=== PATIENT | female | born 1970 | race Two or more races ===

== ENCOUNTER 2017-03-29 21:53 | Emergency (ER) | payer BC ==
[~2017-03-29] VITALS: Ht 157.5 cm; Wt 81.8 kg
[2017-03-29 22:53] VITALS: Ht 157.5 cm; Wt 81.8 kg
[2017-03-30] MEDS ORDERED: KETOROLAC 30 MG INJ IM STA (00:18)
[2017-03-30] MEDS ORDERED: CYCLOBENZAPRINE 10 MG TAB PO ONE (00:30)
[2017-03-30] MEDS ORDERED: ONDANSETRON (ODT) 4 MG TAB ODT STA (02:18)
[2017-03-30] MEDS ORDERED: HYDROCODONE/APAP (5/325) TAB PO ONE (02:30)
[2017-03-30] MEDS ORDERED: HYDR-906 PO (03:03)
[2017-03-30] MEDS ORDERED: IBUP-1542 PO (03:03)
[2017-03-30 03:05] VITALS: BP 127/69; PULSE 82; RESP 18; TEMP 98.3
[2017-03-30] MEDS ORDERED: ONDA4TAB8 PO (03:14)
--- NOTE | 2017-03-31 14:20 | ERD ---
ER Documentation Chief Complaint Date/Time DATE: 03/31/17 TIME: 14:18 Chief Complaint R hip pain kulwant down 2 her R back & R thigh,no fall/trauma,Motrin no relief HPI This is a 46 year old female presents to ER with right-sided lower back pain that radiates down to right thigh. Patient rates pain 10/10 to right lower back and describes pain as shooting. No aggravating or relieving factors. Patient denies any recent fall or trauma to area. Denies dysuria or hematuria. Patient states she has intermittent numbness and tingling to lateral aspect of right thigh. Denies saddle anesthesia. No bowel or bladder incontinence. Patient took ibuprofen at home without relief of symptoms. ROS All systems reviewed and are negative except as per history of present illness. Medications Home Meds Active Scripts Ondansetron Hcl* (Zofran*) 4 Mg Tablet, 4 MG PO Q6H for NAUSEA AND/OR VOMITING, #10 TAB Prov:GHADA BURNETT NP 03/30/17 Ibuprofen* (Motrin*) 600 Mg Tab, 600 MG PO Q6, #15 TAB Prov:GHADA BURNETT NP 03/30/17 Hydrocodone/Acetaminophen (Watson 5-325 Tablet) 1 Each Tablet, 1 EACH PO Q6, #15 TAB Prov:GHADA BURNETT NP 03/30/17 Allergies Allergies: Coded Allergies: No Known Allergy (Unverified , 03/29/17) PMhx/Soc History of Surgery: Yes (gallbladder, L ovary removal) Hx Miscellaneous Medical Probl: Yes (high cholesterol) Hx Alcohol Use: No Hx Substance Use: No Hx Tobacco Use: No Smoking Status: Never smoker Physical Exam Vitals Vital Signs Date Time Temp Pulse Resp B/P Pulse Ox O2 Delivery O2 Flow Rate FiO2 03/30/17 03:05 98.3 82 18 127/69 99 03/29/17 22:53 98.6 65 18 137/79 99 Physical Exam Const: Alert, mild distress Head: Atraumatic Eyes: Normal Conjunctiva ENT: Normal External Ears, Nose and Mouth. Neck: Full range of motion..~ No meningismus. Resp: Clear to auscultation bilaterally Cardio: Regular rate and rhythm, no murmurs Abd: Soft, non tender, non distended. Normal bowel sounds Skin: No petechiae or rashes Back: No midline or flank tenderness. No CVA tenderness. Ext: No swelling to right leg. Pedal pulses palpable 2+ bilaterally. No bruising. No obvious bony abnormality. Negative straight leg raise. Full range of motion to right hip, knee and ankle. Neur: Awake and alert Psych: Normal Mood and Affect Results 24 hrs Current Medications Medications (Trade) Dose Ordered Sig/Aleida Route PRN Reason Start Time Stop Time Status Last Admin Dose Admin Ketorolac Tromethamine (Toradol) 30 mg ONCE STAT IM 03/30/17 00:18 03/30/17 00:21 DC 03/30/17 01:20 Cyclobenzaprine HCl (Flexeril) 10 mg ONCE ONCE PO 03/30/17 00:30 03/30/17 00:31 DC 03/30/17 01:18 Acetaminophen/ Hydrocodone Bitart (Watson (5/325)) 1 tab ONCE ONCE PO 03/30/17 02:30 03/30/17 02:31 DC 03/30/17 02:25 Ondansetron HCl (Zofran Odt) 4 mg ONCE STAT ODT 03/30/17 02:18 03/30/17 02:19 DC 03/30/17 02:27 Procedures/MDM MDM: This is a 46-year-old female presenting to emergency department with right- sided lower back pain that radiates to right leg 2 days. Patient took ibuprofen at home without relief of symptoms. Physical exam is overall unremarkable. Patient has intermittent shooting pains to right lower back. No CVA tenderness. Denies dysuria hematuria. No recent injury or trauma to area. Patient given Toradol 30 mg IM and cyclobenzaprine 10 mg while in the ED. Patient initially refused Watson. Upon reassessment, patient states she continues to have pain and now wants to try Watson. Patient given Watson 5/325 mg on the ED. Upon reassessment, patient states pain is now tolerable. Vital signs are stable. No neuro deficits. Patient is alert and oriented. Low suspicion for cauda equina syndrome, acute fracture, acute dislocation, epidural abscess, malignancy and AAA rupture. Differential Diagnosis includes but is not limited to back strain, sciatica, vertebral fracture, herniated disc, spinal stenosis and nephrolithiasis. Patient is appropriate for outpatient management and will be given prescription for Watson 5/325 #15, Zofran and ibuprofen. Instructed patient to follow-up with primary care provider in the next 2-3 days for reassessment. Return to ED for any high fever, chest pain, difficulty breathing, shortness breath, wheezing , vomiting, diarrhea, abdominal pain or any new or worsening symptoms. Patient verbalizes understanding. All questions answered at discharge. Departure Diagnosis: Primary Impression: Back pain Back pain location: low back pain Chronicity: acute Back pain laterality: right Sciatica presence: with sciatica Sciatica laterality: sciatica of right side Qualified Code: M54.41 - Acute right-sided low back pain with right -sided sciatica Condition: Stable Patient Instructions: Back Pain (Acute Or Chronic), Back Pain W/ Sciatica Referrals: (Family) [facility] YOU HAVE RECEIVED A MEDICAL SCREENING EXAM AND THE RESULTS INDICATE THAT YOU DO NOT HAVE A CONDITION THAT REQUIRES URGENT TREATMENT IN THE EMERGENCY DEPARTMENT. FURTHER EVALUATION AND TREATMENT OF YOUR CONDITION CAN WAIT UNTIL YOU ARE SEEN IN YOUR DOCTORS OFFICE WITHIN THE NEXT 1-2 DAYS. IT IS YOUR RESPONSIBILITY TO MAKE AN APPOINTMENT FOR FOLOW-UP CARE. IF YOU HAVE A PRIMARY DOCTOR --you should call your primary doctor and schedule an appointment IF YOU DO NOT HAVE A PRIMARY DOCTOR YOU CAN CALL OUR PHYSICIAN REFERRAL HOTLINE AT IF YOU CAN NOT AFFORD TO SEE A PHYSICIAN YOU CAN CHOSE FROM THE FOLLOWING [facility] [address] [facility]. [facility] [address] [facility] [facility] [address] [facility] [address] [facility]. [facility] [address] [facility]. [facility]. [address] [facility] YOU HAVE RECEIVED A MEDICAL SCREENING EXAM AND THE RESULTS INDICATE THAT YOU DO NOT HAVE A CONDITION THAT REQUIRES URGENT TREATMENT IN THE EMERGENCY DEPARTMENT. FURTHER EVALUATION AND TREATMENT OF YOUR CONDITION CAN WAIT UNTIL YOU ARE SEEN IN YOUR DOCTORS OFFICE WITHIN THE NEXT 1-2 DAYS. IT IS YOUR RESPONSIBILITY TO MAKE AN APPOINTMENT FOR FOLOW-UP CARE. IF YOU HAVE A PRIMARY DOCTOR --you should call your primary doctor and schedule and appointment IF YOU DO NOT HAVE A PRIMARY DOCTOR YOU CAN CALL OUR PHYSICIAN REFERRAL HOTLINE AT . IF YOU CAN NOT AFFORD TO SEE A PHYSICIAN YOU CAN CHOSE FROM THE FOLLOWING [facility] INSTITUTIONS: [facility] [address] [place] [address] [address] [place] [address] [facility] [address] [place] [address] Additional Instructions: Call your primary care doctor TOMORROW for an appointment during the next 2-3 days.See the doctor sooner or return here if your condition worsens before your appointment time. Return to ED for any high fever, chest pain, difficulty breathing, shortness breath, wheezing, vomiting, diarrhea, abdominal pain or any new or worsening symptoms. GHADA BURNETT NP Mar 31, 2017 14:20
== END 2017-03-30 03:10 | disposition home or self-care (01) ==
LOC: FTE 21:53
DX: M54.41 Lumbago with sciatica, right side (principal)
CPT/HCPCS: 96372; 99284; J1885; Z7610

== ENCOUNTER 2017-04-01 15:43 | Emergency (ER) | payer BC, OTHER ==
[~2017-04-01] VITALS: Ht 157.5 cm; Wt 84.0 kg
[~2017-04-01 15:43] MED LIST: HYDR-906 PO; IBUP-1542 PO; ONDA4TAB8 PO
[2017-04-01 15:48] VITALS: Ht 157.5 cm; Wt 84.0 kg
[2017-04-01] MEDS ORDERED: KETOROLAC 30 MG INJ IM STA (16:24)
[2017-04-01] MEDS ORDERED: predniSONE 20 MG TAB PO ONE (16:30)
--- NOTE | 2017-04-01 16:30 | ERD ---
ER Documentation Chief Complaint Date/Time DATE: 04/01/17 TIME: 16:28 Chief Complaint BACK PAIN RADIATING TO RIGHT LEG X 3 DAYS HPI This 38-year-old female presents emergency department today complaining of low back pain for the past 4 days. Patient states that she took the medication she was given here and she think she had an allergic reaction to it she also took gabapentin at home so she is not sure what caused the reaction. States that she has pain down the back of her leg in the front of her right knee. States she also took gabapentin that her doctor gave her. States she also fell on her knee. Denies any fevers or chills, loss of bowel or bladder control, dysuria. ROS All systems reviewed and are negative except as per history of present illness. Medications Home Meds Active Scripts Prednisone* (Prednisone*) 20 Mg Tab, 40 MG PO DAILY for 4 Days, TAB Prov:ROCIO LAMB PA-C 04/01/17 Tramadol HCl (Tramadol HCl) 50 Mg Tablet, 50 MG PO Q4 Y for PAIN, #20 TAB Prov:ROCIO LAMB PA-C 04/01/17 Ondansetron Hcl* (Zofran*) 4 Mg Tablet, 4 MG PO Q6H for NAUSEA AND/OR VOMITING, #10 TAB Prov:GHADA BURNETT NP 03/30/17 Ibuprofen* (Motrin*) 600 Mg Tab, 600 MG PO Q6, #15 TAB Prov:GHADA BURNETT NP 03/30/17 Hydrocodone/Acetaminophen ([place] 5-325 Tablet) 1 Each Tablet, 1 EACH PO Q6, #15 TAB Prov:GHADA BURNETT NP 03/30/17 Allergies Allergies: Coded Allergies: gabapentin (Verified Allergy, Mild, rash, 04/01/17) PMhx/Soc History of Surgery: Yes (gallbladder, L ovary removal) Hx Miscellaneous Medical Probl: Yes (high cholesterol) Hx Alcohol Use: No Hx Substance Use: No Hx Tobacco Use: No Smoking Status: Never smoker Physical Exam Vitals Vital Signs Date Time Temp Pulse Resp B/P Pulse Ox O2 Delivery O2 Flow Rate FiO2 04/01/17 15:48 97.5 62 18 135/65 100 Physical Exam Const: Sitting in wheelchair, no acute distress Head: Atraumatic Eyes: Normal Conjunctiva ENT: Normal External Ears, Nose and Mouth. Neck: Full range of motion..~ No meningismus. Resp: Clear to auscultation bilaterally Cardio: Regular rate and rhythm, no murmurs Abd: Soft, non tender, non distended. Normal bowel sounds Skin: No petechiae or rashes Back: Mild midline tenderness and right-sided paraspinal tenderness. Negative straight leg raise. Pain with standing. Pulses 2+. Distal neurovascularly intact. Ext: Right knee with no obvious deformity. No effusion. No ecchymosis. Full active range of motion. Tenderness to palpation. Pulses 2+. Distal neurovascular intact Neur: Awake and alert Psych: Normal Mood and Affect Results 24 hrs Current Medications Medications (Trade) Dose Ordered Sig/Aleida Route PRN Reason Start Time Stop Time Status Last Admin Dose Admin Ketorolac Tromethamine (Toradol) 30 mg ONCE STAT IM 04/01/17 16:24 04/01/17 16:27 DC 04/01/17 17:05 Prednisone (Prednisone) 60 mg ONCE ONCE PO 04/01/17 16:30 04/01/17 16:31 DC 04/01/17 17:04 Procedures/MDM This 38-year-old female presents emergency department today complaining of right -sided back pain and pain down her right leg the past 4 days. Upon review of patient's medical records patient was seen here a few days ago and was given Toradol, [place] and a prescription for [place] and Naprosyn for home. Patient states that pain has persisted. Given this I did obtain images. She did not want to wait for results of her x-rays that she felt that she had been waiting too long. She just wanted medication for home. Patient's images of her right knee was read by Dr. Chavez as negative. There is no acute fracture dislocation. Low suspicion for acute fracture or dislocation. Patient is afebrile and otherwise well-appearing. They have no loss of bowel or bladder control. Low suspicion for cauda equina or abscess. Patient was given Toradol and prednisone here in the emergency department and pain improved. Patient will be given a prescription for short course of prednisone and tramadol for home. I am unsure if patient had an allergic reaction to the [place] she gave her but she feels that her arms are itchy. Patient was also given crutches to help ambulate and take pressure off her leg. At this time the patient is stable for discharge and outpatient management. Patient should follow up with their PCP in the next 1-2 days. They may return to the emergency department sooner for any persistent or worsening of symptoms. Patient understood and agreed with the plan. Departure Diagnosis: Primary Impression: Back pain Back pain location: low back pain Chronicity: acute Back pain laterality: right Sciatica presence: with sciatica Sciatica laterality: sciatica of right side Qualified Code: M54.41 - Acute right-sided low back pain with right -sided sciatica Additional Impression: Knee pain Laterality: right Chronicity: acute Qualified Code: M25.561 - Acute pain of right knee Condition: Fair ROCIO LAMB PA-C Apr 01, 2017 16:30
[2017-04-01] MEDS ORDERED: TRAM50TA2 PO (19:41)
[2017-04-01] MEDS ORDERED: PRED20TA PO (19:41)
--- NOTE | 2017-04-01 19:49 | RADRPT ---
PROCEDURE: XR Lumbar Spine. CLINICAL INDICATION: 46 years of age, female. Back pain with radicular symptoms. Fall.. TECHNIQUE: AP, lateral and cone-down lateral view of the lumbar spine were obtained. COMPARISON: No prior studies are available for comparison. FINDINGS: There are 5 lumbar-type vertebrae. Lumbar spine is imaged from T10 to the sacrum. There is a curvature convex left centered on L2-3 and there is straightening of the normal lumbar lo rdosis. Negative for spondylolisthesis. Negative for acute fracture or traumatic subluxation. There is multilevel degenerative disk disease with disk space narrowing and bulky osteophytes from T 11 to L3. There is facet joint arthritis at L4-5 and L5-S1 with subchondral sclerosis. Posterior e lements are otherwise unremarkable. Sacroiliac joints appear normal. Cholecystectomy clips right upper quadrant. IMPRESSION: Negative for evidence of acute fracture or traumatic subluxation of lumbar spine. Multilevel degenerative changes with curvature convex left and straightening of the normal lumbar lo rdosis. RPTAT: HCTS Physician Asher Date Time Electronically viewed and signed by Physician Asher on 04/01/2017 19:49 /
--- NOTE | 2017-04-01 19:50 | RADRPT ---
PROCEDURE: XR Knee. CLINICAL INDICATION: 46-year of age, female. Fall. TECHNIQUE: Three views of the right knee. COMPARISON: None available. FINDINGS: Negative for evidence of acute fracture. Normal alignment. Joint spaces are preserved without evidence of arthritis. Negative for evidence of a joint effusion. Negative for significant soft tissue swelling. IMPRESSION: Negative for evidence of acute fracture or dislocation of the right knee. RPTAT: HCTS Physician Asher Date Time Electronically viewed and signed by Mahesh Billingsley Physician on 04/01/2017 19:50 CS/
[2017-04-01 19:55] VITALS: BP 135/69; PULSE 60; RESP 16
== END 2017-04-01 19:57 | disposition home or self-care (01) ==
LOC: FTE 15:43
DX: M54.41 Lumbago with sciatica, right side (principal); M25.561 Pain in right knee
CPT/HCPCS: 72100; 73562; 96372; J1885; J7512; Z7502